=== PATIENT | male | born 1955 | race Caucasian/White ===

== ENCOUNTER 2016-06-03 18:33 | Emergency (ER) | payer OTHER ==
[~2016-06-03] VITALS: Ht 182.9 cm; Wt 100.2 kg
--- NOTE | 2016-06-03 18:50 | NUR ---
MSE DONE AT BEDSIDE DR CUMMINGS.
[2016-06-03] MEDS ORDERED: NEOMY/BACITRA/POLYMYXIN B OINT UD PACKET TP ONE ×2 (19:00→19:05)
--- NOTE | 2016-06-03 19:01 | NUR ---
Patient discharged to home in stable conditon. Written and verbal after care instructions given. Patient verbalizes understanding of instructions.
== END 2016-06-03 19:04 | disposition home or self-care (01) ==
LOC: ER 18:34
DX: L03.011 Cellulitis of right finger (principal); I10 Essential (primary) hypertension; K21.9 Gastro-esophageal reflux disease without esophagitis; F10.20 Alcohol dependence, uncomplicated
CPT/HCPCS: A4663